=== PATIENT | female | born 1960 | race Caucasian/White ===

== ENCOUNTER 2020-07-11 15:05 | Emergency (ER) | payer OTHER, SELFPAY ==
[~2020-07-11] VITALS: Ht 182.9 cm; Wt 66.2 kg
[~2020-07-11 15:05] MED LIST: MOTRIN800 MG PO; NICOTINE T14 MG/24 H TOP; ZOC20 PO
[2020-07-11 15:22] VITALS: Ht 182.9 cm; Wt 66.2 kg
[2020-07-11 19:09] VITALS: BP 135/67
== END 2020-07-11 19:09 | disposition home or self-care (01) ==
LOC: ED 15:05
DX: G44.209 Tension-type headache, unspecified, not intractable (principal); H66.92 Otitis media, unspecified, left ear; Z91.030 Bee allergy status; Z88.0 Allergy status to penicillin; Z90.710 Acquired absence of both cervix and uterus
CPT/HCPCS: J1885; Q0162